=== PATIENT | female | born 1965 | race Caucasian/White ===

== ENCOUNTER 2018-09-03 21:10 | Inpatient (IN) | payer MEDICAID, OTHER ==
[~2018-09-03] VITALS: Ht 152.4 cm; Wt 60.8 kg
--- NOTE | 2018-09-03 22:15 | ERD ---
ER Documentation Chief Complaint Chief Complaint multiple c/o HPI The patient is a 52-year-old female, presenting to the ER with multiple complaints. She complains of right eye discomfort yesterday that began around 8 AM. She complains about left-sided headache, left facial numbness, left hand numbness around 630 this morning, complains of left leg numbness began about 6 PM this evening. She had similar symptoms previously about 3 weeks ago that lasted for approximately a day and went away by itself. She denies fever, chill s, blurred vision, neck pain, chest pain, dyspnea, abdominal pain, vomiting, dysuria, diarrhea. She does not smoke, drinks socially, has a lot of stress in her life recently Past medical history: Hypertension but does not take med, anxiety Past surgical history: None ROS All systems reviewed and are negative except as per history of present illness. Physical Exam Vitals Vital Signs Date Temp Pulse Resp B/P (MAP) Pulse Ox O2 O2 Flow FiO2 Time Delivery Rate 09/04/18 71 20 120/74 99 Room Air 00:06 (89) 09/03/18 77 20 172/93 98 Room Air 22:15 (119) 09/03/18 98.4 84 18 202/104 100 21:15 (136) Physical Exam Const: No acute distress. Head: Atraumatic. Eyes: Normal Conjunctiva. ENT: Normal External Ears, Nose and Mouth. Neck: Full range of motion. No meningismus. Resp: Clear to auscultation bilaterally. Cardio: Regular rate and rhythm. Abd: Soft, non distended, normal bowel sounds, non tender. Skin: No petechiae or rashes. Back: No midline or flank tenderness. Ext: No cyanosis, or edema. Neur: Awake and alert. No focal deficit Psych: Anxious Result Diagram: 09/03/18 2300 09/03/18 230 Results 24 hrs Laboratory Tests Test 09/03/18 23:00 White Blood Count 7.4 10^3/ul Red Blood Count 4.63 10^6/ul Hemoglobin 13.9 g/dl Hematocrit 41.6 % Mean Corpuscular Volume 89.8 fl Mean Corpuscular Hemoglobin 30.0 pg Mean Corpuscular Hemoglobin Concent 33.4 g/dl Red Cell Distribution Width 12.0 % Platelet Count 301 10^3/UL Mean Platelet Volume 9.6 fl Immature Granulocytes % 0.300 % Neutrophils % 52.4 % Lymphocytes % 37.6 % Monocytes % 7.7 % Eosinophils % 1.6 % Basophils % 0.4 % Nucleated Red Blood Cells % 0.0 /100WBC Immature Granulocytes # 0.020 10^3/ul Neutrophils # 3.9 10^3/ul Lymphocytes # 2.8 10^3/ul Monocytes # 0.6 10^3/ul Eosinophils # 0.1 10^3/ul Basophils # 0.0 10^3/ul Nucleated Red Blood Cells # 0.0 10^3/ul Prothrombin Time 11.8 Sec Prothrombin Time Ratio 0.9 INR International Normalized Ratio 0.86 Activated Partial Thromboplast Time 29.3 Sec Sodium Level 141 mmol/L Potassium Level 3.7 mmol/L Chloride Level 106 mmol/L Carbon Dioxide Level 26 mmol/L Anion Gap 9 Blood Urea Nitrogen 17 mg/dl Creatinine 0.69 mg/dl Est Glomerular Filtrat Rate mL/min > 60 mL/min Glucose Level 99 mg/dl Calcium Level 10.4 mg/dl Current Medications Medications Dose Sig/Warren Start Time Status Last (Trade) Ordered Route PRN Stop Time Admin Dose Reason Admin Alprazolam 0.25 mg ONCE ONCE 09/03/18 DC 09/03/18 (Xanax) PO 23:00 23:14 09/03/18 23:01 1 tab ONCE ONCE 09/04/18 DC 09/04/18 Acetaminophen PO 01:00 00:54 / 09/04/18 01:01 Hydrocodone Bitart ([place] (5/325)) Ondansetron 4 mg ONCE STAT 09/04/18 DC 09/04/18 HCl (Zofran ODT 00:45 00:54 Odt) 09/04/18 00:46 Procedures/MDM EKG: Read by emergency physician Rate/Rhythm: Normal Sinus Rhythm 69 beats/min QRS, ST, T-waves: No ST elevation, no T inversion Impression: Normal EKG [place] [id number] Radiology Main Line: [phone] DIAGNOSTIC IMAGING REPORT Patient: CODI SERRANO : 1965 Age: 52 Sex: F MR #: [id number] DOS: 09/03/18 1527 Ordering MD: JORGE GROSSMAN MD Location: E/R Room/Bed: PROCEDURE: CT Brain without contrast. CLINICAL INDICATION: Headache. TECHNIQUE: A CT of the brain was performed on a multi-slice CT scanner utilizing axial imaging from the skull base through the vertex without IV contrast. Multiplanar reformatted images were made. Images were reviewed on a PACS workstation. One or more the following dose reduction techniques were utilized: Automated exposure control, adjustment of mA/ or kV according to patient's size, or use of iterative reconstruction technique. DICOM images are available for review. The CTDIvol is 39.64 mGy and the DLP is 634.23 mGycm. COMPARISON: None FINDINGS: No mass effect or midline shift. Normal ventricles for age. No acute intra-axial or extra-axial hemorrhage. No subdural collection. Clemons - white matter differentiation is maintained. Visualized paranasal sinuses are clear. Mastoid air cells are clear. IMPRESSION: Negative noncontrast CT brain RPTAT: HLRS Physician Elba Date Time Electronically viewed and signed by Physician Elba on 09/04/2018 00:49 RS/ CC: JORGE GROSSMAN MD [id number] MEDICAL MAKING DECISION: The patient is a 52-year-old female, presenting with acute left-sided numbness of unclear etiology, acute hypertensive urgency. She was treated with Xanax 0.25 mg p.o. for acute anxiety, [place] 5 mg p.o. for her headache and Zofran ODT for her nausea with good response, blood pressure improved The differential diagnoses considered include but are not limited to impending CVA, TIA, subarachnoid hemorrhage, occult trauma, CVA, meningitis, encephalitis, hypertension, tension, migraine, cluster, narcotic withdrawal, cervical spine disease. Departure Diagnosis: Primary Impression: Left sided numbness Condition: Stable Comments I discussed the findings with the patient. I discussed the patient with Harvey at 1:20 AM, who was made aware of the lab, the treatment, the patient condition. The patient is admitted to Tel observation Disclaimer: Inadvertent spelling and grammatical errors are likely due to EHR/dictation software use and do not reflect on the overall quality of patient care. Also, please note that the electronic time recorded on this note does not necessarily reflect the actual time of the patient encounter. JORGE GROSSMAN MD September 03, 2018 22:15
[2018-09-03] MEDS ORDERED: ALPRAZOLAM 0.25 MG TAB PO ONE (23:00)
[2018-09-04] VITALS (10 sets, daily range): BP systolic 113–129; BP diastolic 59–70; PULSE 54–74; RESP 18; Ht 152.4 cm; Wt 60.8 kg
[2018-09-04] MEDS ORDERED: ONDANSETRON (ODT) 4 MG TAB ODT STA (00:45)
[2018-09-04] MEDS ORDERED: HYDROCODONE/APAP (5/325) TAB PO ONE (01:00)
--- NOTE | 2018-09-04 01:29 | HP ---
Date/Time of Note Date/Time of Note DATE: 09/04/18 TIME: : Assessment/Plan VTE Prophylaxis SCD applied (from Nsg): Yes Pharmacological prophylaxis: NA/contraindicated Pharm contraindication: low risk/ambulating Lines/Catheters IV Catheter Type (from Nrsg): Saline Lock Assessment/Plan Hospital Course This is a 52-year-old female being admitted to the telemetry floor for observation for: #1 headaches with left-sided numbness: Differential includes cva/tia, multiple sclerosis, complex migraine, uncontrolled hypertension, anxiety. Patient did present to the emergency department with systolic blood pressures in the 200s which subsequently improved after receiving Ralph as well as Xanax. Patient did report a headache again later and was given Ralph which did provide her some relief. Given her left-sided numbness as well as her lumbar pain. We will proceed with an MRI of the brain with and without contrast as well as an MRI of the lumbar spine. We will provide the patient Toradol for headaches. CT of the brain was negative for any acute abnormalities. Neurochecks every 4 hours. Will consult neurology . check a1c, lipid panel, tsh, carotid doppler. echo with bubble study. #2 elevated blood pressure: Patient did present with blood pressures in the 200s however these did subsequently improve after receiving Ralph and Xanax. I am inclined to think that this likely could be anxiety related. Nonetheless we will continue to monitor blood pressures. And institute any blood pressure medication as indicated. #3 lower back pain: Patient does have tenderness palpation at the lumbar spine. She has positive straight leg test bilaterally. Saddle anesthesia, no urinary incontinence. We will proceed with MRI of the lumbar spine. #4 DVT GI prophylaxis: SCDs, no GI prophylaxis indicated Further treatment strategy will be implemented as per the clinical course. Result Diagram: 09/03/18 2300 09/03/18 2300 Results 24hrs Laboratory Tests Test 09/03/18 23:00 White Blood Count 7.4 Red Blood Count 4.63 Hemoglobin 13.9 Hematocrit 41.6 Mean Corpuscular Volume 89.8 Mean Corpuscular Hemoglobin 30.0 Mean Corpuscular Hemoglobin Concent 33.4 Red Cell Distribution Width 12.0 Platelet Count 301 Mean Platelet Volume 9.6 Immature Granulocytes % 0.300 Neutrophils % 52.4 Lymphocytes % 37.6 Monocytes % 7.7 Eosinophils % 1.6 Basophils % 0.4 Nucleated Red Blood Cells % 0.0 Immature Granulocytes # 0.020 Neutrophils # 3.9 Lymphocytes # 2.8 Monocytes # 0.6 Eosinophils # 0.1 Basophils # 0.0 Nucleated Red Blood Cells # 0.0 Prothrombin Time 11.8 L Prothrombin Time Ratio 0.9 INR International Normalized Ratio 0.86 Activated Partial Thromboplast Time 29.3 Sodium Level 141 Potassium Level 3.7 Chloride Level 106 Carbon Dioxide Level 26 Anion Gap 9 Blood Urea Nitrogen 17 Creatinine 0.69 Est Glomerular Filtrat Rate mL/min > 60 Glucose Level 99 Calcium Level 10.4 H HPI/ROS Admit Date/Time Admit Date/Time Hx of Present Illness Chief complaint: Headache, left-sided weakness Is a 52-year-old female with a past medical history of anxiety who presented with symptoms of headache. Patient reported that she started experiencing right sided eye discomfort at approximately 8 AM yesterday. She then reported that it moved over to the left side and she started experiencing left sided headache and pressure surrounding the left eye. She states that then developed into the left facial numbness along with left upper and lower extremity numbness. She did not have any difficulty with her gait. She did report having similar symptoms approximately 3 weeks ago and they resolved on their own. She has been told she has a history of high blood pressure but she has not been checking her blood pressure at home. She also reports that she has had lower back pain for 1 week. She reports that it hurt when she sits as well as after she walks. She denies any urinary incontinence or saddle anesthesia. She does though deny photophobia Family is present with her at the bedside. And they also do report that she has a history of anxiety. Does not report any recent acute events. Allergies: NKDA Medications: See JUN ROS Const: As per HPI Eyes : No pain discharge or redness or change in visual acuity ENT: No pain, sore throat, congestion, congestion, dysphagia or discharge Respiratory: No shortness of breath, cough, sputum, wheezing, or pleuritic pain Cardiovascular: No chest pain, palpitation, PND, or edema GI : no change in appetite, abdominal pain, nausea, vomiting, diarrhea, constipation, or change in the color his stool Genitourinary: No dysuria, hematuria, flank pain , discharge or CVA tenderness Musculoskeletal: As per HPI Skin: No rash, bruising or hives Neuro: As per HPI Endocrine: No polyuria, polydipsia, temperature intolerance Psych: No hallucination, depression, anxiety or suicidal ideation PMH/Family/Social Past Medical History Hypertension, anxiety Coded Allergies: No Known Allergy (Unverified , 09/04/18) Past Surgical History Past Surgical Hx: no surgical history Family History Significant Family History: no pertinent family hx Social History Alcohol Use: none Smoking Status: Never smoker Drug Use: none Exam/Review of Systems Vital Signs Vitals Vital Signs Date Temp Pulse Resp B/P (MAP) Pulse Ox O2 O2 Flow FiO2 Time Delivery Rate 09/04/18 71 20 120/74 99 Room Air 00:06 (89) 09/03/18 98.4 21:15 Exam Exam General: Patient is a pleasant female currently lying in bed in no acute distress HEENT: Atraumatic, normocephalic. The pupils are equal, round and reactive. Ex traocular motor are intact Neck: Supple with full range of motion. No rigidity or meningismus Chest: Nontender Lungs: Clear to auscultation bilaterally no crackles rales or wheezing Heart: Normal S1-S2, Regular rhythm and rate. Abdomen: Soft , nontender, nondistended , bowel sounds are present. No guarding no rebound tenderness , No masses or organomegaly. No costovertebral temporal angle mass Extremities: Normal to inspection, no edema no cyanosis Neurologic: Normal mental status, speech normal, cranial nerves II through XII are intact, motor and sensory are intact, positive straight leg test bilaterally Musculoskeletal: Tenderness palpation at the lumbar spine Skin: Left cheek birthmark Additional Comments PROCEDURE: CT Brain without contrast. CLINICAL INDICATION: Headache. TECHNIQUE: A CT of the brain was performed on a multi-slice CT scanner utilizing axial imaging from the skull base through the vertex without IV contrast. Multiplanar reformatted images were made. Images were reviewed on a PACS workstation. One or more the following dose reduction techniques were utilized: Automated exposure control, adjustment of mA/ or kV according to selena ent's size, or use of iterative reconstruction technique. DICOM images are available for review. The CTDIvol is 39.64 mGy and the DLP is 634.23 mGycm. COMPARISON: None FINDINGS: No mass effect or midline shift. Normal ventricles for age. No acute intra-axial or extra-axial hemorrhage. No subdural collection. Clemons - white matter differentiation is maintained. Visualized paranasal sinuses are clear. Mastoid air cells are clear. IMPRESSION: Negative noncontrast CT brain RPTAT: HLRS Physician Elba Date Time Electronically viewed and signed by Lin Smith Physician on 09/04/2018 00:49 RS/ CC: JORGE GROSSMAN MD [id number] EKG: Rate/Rhythm: Normal Sinus Rhythm 69 beats/min QRS, ST, T-waves: No ST elevation, no T inversion Impression: Normal EKG KWABENA VILLARREAL September 04, 2018 01:29
[2018-09-04] MEDS ORDERED: NITROGLYCERIN (SL) 0.4 MG TAB SL PRN (04:00)
[2018-09-04] MEDS ORDERED: HYDROCODONE/APAP (5/325) TAB PO PRN (04:00)
[2018-09-04] MEDS ORDERED: DOCUSATE SODIUM 100 MG CAP PO PRN (04:00)
[2018-09-04] MEDS ORDERED: ACETAMINOPHEN 325 MG TAB PO PRN (04:00)
[2018-09-04] MEDS ORDERED: NACL 0.9% 3 ML SYG IV SCH (04:00)
[2018-09-04] MEDS ORDERED: hydrALAzine 20 MG INJ IV PRN (04:00)
[2018-09-04] MEDS ORDERED: ONDANSETRON 4 MG INJ IV PRN (04:00)
[2018-09-04] MEDS ORDERED: BISACODYL (EC) 5 MG TAB PO PRN (04:00)
[2018-09-04] MEDS: KETOROLAC 15 MG INJ IV SCH ×4 (05:53→23:00)
--- NOTE | 2018-09-04 10:01 | QN ---
Documentation Comment 52-yo F w/previous hx of htn-off tx,came in for sudden onset of sevre headache followed by left arm numbness... CT brain unremarkable. Patient symptoms completely resolved. Blood pressure has been stable and will hold off to any antihypertensive at this point. Pending neurology evaluation. She has been also having low back pain for a week duration. We will follow-up on MRI studies that has been ordered. PT follow- up. Patient was seen in collaboration with Dr. Regalado. YURI VINSON NP September 04, 2018 10:01
--- NOTE | 2018-09-04 11:14 | CONS ---
Assessment/Plan Assessment/Plan Hospital Course 52 F c reported Hx of HTN, though admittedly noncompliant w/ medications...who presents for evaluation of transient left sided numbness in the context of headache. Admission BP 202/104.. The clinical picture is most ominously concerning for TIA/minor stroke. New onset and complex migraine is unlikely.. Hypertensive urgency is a Dx of exclusion.. Head CT is unrevealing. CUS is negative P: Await MRI brain for exclude acute ischemia Asa/lipitor for now pending the above Await echo read PT/OT/ST not presently indicated.. Pain control and other management per primary Will follow clinically Consultation Date/Type/Reason Admit Date/Time Type of Consult Neurology Reason for Consultation transient headache and left sided numbness Requesting Provider: KWABENA VILLARREAL Date/Time of Note DATE: 09/04/18 TIME: 11:05 Hx of Present Illness Chief complaint: Headache, left-sided weakness She is a 52-year-old female with a past medical history of anxiety who presented with symptoms of headache. Patient reported that she started experiencing right sided eye discomfort at approximately 8 AM yesterday. She then reported that it moved over to the left side and she started experiencing left sided headache and pressure surrounding the left eye. She states that then developed into the left facial numbness along with left upper and lower extremity numbness. She did not have any difficulty with her gait. She did report having similar symptoms approximately 3 weeks ago and they resolved on their own. She has been told she has a history of high blood pressure but she has not been checking her blood pressure at home. She also reports that she has had lower back pain for 1 week. She reports that it hurt when she sits as well as after she walks. She denies any urinary incontinence or saddle anesthesia. She does though deny photophobia Family is present with her at the bedside. And they also do report that she has a history of anxiety. Does not report any recent acute events. She has not seen a doctor in a couple of years...tough reportedly diagnosed w/ hypertension 8 years ago. Allergies: NKDA 12 PT ros ow neg Exam/Review of Systems Exam Vitals Vital Signs Date Temp Pulse Resp B/P (MAP) Pulse Ox O2 O2 Flow FiO2 Time Delivery Rate 09/04/18 97.6 74 18 118/68 98 Room Air 11:01 (85) Exam PE: Gen Appearance: No Apparent Distress HEENT: Normocephalic Cardiovascular: Regular rate Lungs: Clear bilaterally Abdomen: Soft Extremities: Dry NE: The patient was alert and oriented. Language was normal. Fund of knowledge was normal. Pupils were equal and reactive to light. There was no afferent pupillary defect. Visual varma were normal. Funduscopic examination was limited. Extra-ocular movements were full. Ptosis was absent. There was no nystagmus. Facial sensation was normal. Face was symmetric with normal strength. Hearing was intact. Palate movements were normal. Neck strength was normal. There was normal tongue bulk and speed of movement. Tone was normal. Muscle bulk was normal. I did not see fasciculations. Arms and legs were strong. Vibration sensation was normal. Temperature and pinprick sensation was normal. Rapid alternating movements were normal. There was no dysmetria. There was no intention tremor. Gait was deferred due to bedrest. Arm and leg reflexes were 2+ and symmetric. Boyle's sign was absent. Plantar r esponses were flexor. Results Result Diagram: 09/04/18 0648 09/04/18 0648 Results 24hrs Laboratory Tests Test 09/03/18 23:00 09/04/18 06:48 White Blood Count 7.4 5.2 # Red Blood Count 4.63 4.34 Hemoglobin 13.9 13.1 Hematocrit 41.6 39.1 Mean Corpuscular Volume 89.8 90.1 Mean Corpuscular Hemoglobin 30.0 30.2 Mean Corpuscular Hemoglobin Concent 33.4 33.5 Red Cell Distribution Width 12.0 12.0 Platelet Count 301 273 Mean Platelet Volume 9.6 9.4 Immature Granulocytes % 0.300 0.200 Neutrophils % 52.4 41.1 Lymphocytes % 37.6 45.4 Monocytes % 7.7 10.0 Eosinophils % 1.6 2.7 Basophils % 0.4 0.6 Nucleated Red Blood Cells % 0.0 0.0 Immature Granulocytes # 0.020 0.010 Neutrophils # 3.9 2.1 Lymphocytes # 2.8 2.4 Monocytes # 0.6 0.5 Eosinophils # 0.1 0.1 Basophils # 0.0 0.0 Nucleated Red Blood Cells # 0.0 0.0 Prothrombin Time 11.8 L Prothrombin Time Ratio 0.9 INR International Normalized Ratio 0.86 Activated Partial Thromboplast Time 29.3 Sodium Level 141 144 Potassium Level 3.7 4.1 Chloride Level 106 109 Carbon Dioxide Level 26 27 Anion Gap 9 8 Blood Urea Nitrogen 17 15 Creatinine 0.69 0.71 Est Glomerular Filtrat Rate mL/min > 60 > 60 Glucose Level 99 91 Calcium Level 10.4 H 9.5 Hemoglobin A1c 5.2 Magnesium Level 2.1 Total Bilirubin 0.6 Direct Bilirubin 0.00 Indirect Bilirubin 0.6 Aspartate Amino Transf (AST/SGOT) 20 Alanine Aminotransferase (ALT/SGPT) 15 Alkaline Phosphatase 84 Total Protein 7.3 Albumin 4.0 Globulin 3.30 H Albumin/Globulin Ratio 1.21 Triglycerides Level 64 Cholesterol Level 170 LDL Cholesterol, Calculated 103 HDL Cholesterol 54 Cholesterol/HDL Ratio 3.1 Thyroid Stimulating Hormone (TSH) 1.930 Medications Medication Current Medications IV Flush (NS 3 ml) 3 ml PER PROTOCOL IV ; Start 09/04/18 at 04:00 Ondansetron HCl (Zofran Inj) 4 mg Q6H PRN IV NAUSEA/VOMITING; Start 09/04/18 at 04:00 Nitroglycerin (Nitroglycerin (Sl Tab) 0.4 Mg) 1 tab Q5M PRN SL .CHEST PAIN; Start 09/04/18 at 04:00 Acetaminophen (Tylenol Tab) 650 mg Q6H PRN PO .PAIN 1-3 OR TEMP; Start 09/04/18 at 04:00 Docusate Sodium (Colace) 100 mg Q12H PRN PO .CONSTIPATION; Start 09/04/18 at 04:00 Bisacodyl (Dulcolax) 5 mg DAILY PRN PO .CONSTIPATION; Start 09/04/18 at 04:00 Hydralazine HCl (Apresoline) 10 mg Q4H PRN IV ELEVATED BLOOD PRESSURE; Start 09/04/18 at 04:00 Acetaminophen/ Hydrocodone Bitart ([place] (5/325)) 1 tab Q4H PRN PO MODERATE PAIN LEVEL 4-6 Last administered on 09/04/18at 03:48; Admin Dose 1 TAB; Start 09/04/18 at 04:00 Ketorolac Tromethamine (Toradol) 15 mg Q6H IV Last administered on 09/04/18at 05:53; Admin Dose 15 MG; Start 09/04/18 at 05:00; Stop 09/05/18 at 05:00 Past Medical History reviewed Medications Current Medications IV Flush (NS 3 ml) 3 ml PER PROTOCOL IV ; Start 09/04/18 at 04:00 Ondansetron HCl (Zofran Inj) 4 mg Q6H PRN IV NAUSEA/VOMITING; Start 09/04/18 at 04:00 Nitroglycerin (Nitroglycerin (Sl Tab) 0.4 Mg) 1 tab Q5M PRN SL .CHEST PAIN; Start 09/04/18 at 04:00 Acetaminophen (Tylenol Tab) 650 mg Q6H PRN PO .PAIN 1-3 OR TEMP; Start 09/04/18 at 04:00 Docusate Sodium (Colace) 100 mg Q12H PRN PO .CONSTIPATION; Start 09/04/18 at 04:00 Bisacodyl (Dulcolax) 5 mg DAILY PRN PO .CONSTIPATION; Start 09/04/18 at 04:00 Hydralazine HCl (Apresoline) 10 mg Q4H PRN IV ELEVATED BLOOD PRESSURE; Start 09/04/18 at 04:00 Acetaminophen/ Hydrocodone Bitart ([place] (5/325)) 1 tab Q4H PRN PO MODERATE PAIN LEVEL 4-6 Last administered on 09/04/18at 03:48; Admin Dose 1 TAB; Start 09/04/18 at 04:00 Ketorolac Tromethamine (Toradol) 15 mg Q6H IV Last administered on 09/04/18at 05:53; Admin Dose 15 MG; Start 09/04/18 at 05:00; Stop 09/05/18 at 05:00 Allergies: Coded Allergies: No Known Allergy (Unverified , 09/04/18) Past Surgical History Past Surgical Hx: no surgical history Social History Alcohol Use: none Smoking Status: Never smoker Drug Use: none TAVIA NATH September 04, 2018 11:14
[2018-09-04] MEDS ORDERED: ASPIRIN (EC) 325 MG TAB PO ONE (11:30)
--- NOTE | 2018-09-04 17:38 | RADRPT ---
Echocardiogram Report Patient Name: CODI SERRANOPatient ID: [id number] : 1965 (53y )Study Date: 09/04/2018 8:02:03 AM Gender: FAccession #: [id number] Tech: Joni Liana [facility] Location: [address] Ref.Physician: KWABENA VILLARREAL Height(Cm): BSA: Weight(Kg): Quality: AdequateOrder Physician: KWABENA VILLARREAL Account #: Procedures: Echocardiographic Report: Transthoracic echocardiogram with complete 2D, M-Mode, and doppler examination. Indications: Left sided numbness w/ bubble study. Measurements: 2D/M Mode Doppler Measurement Value Normal Range Measurement Value Normal Range LVIDd 2D 4.3 [ 3.8 - 5.2 ] cm AV Peak Leroy 1.5 [ 100.0 - 170.0 ] cm/sec LVIDs 2D 2.6 [ 2.2 - 3.5 ] cm AV Peak PG 8.0 [ 2.0 - 9.0 ] mmHg LVPWd 2D 0.9 [ 0.6 - 0.9 ] cm LVOT Peak Leroy 0.9 [ 70.0 - 110.0 ] cm/sec IVSd 2D 0.9 [ 0.6 - 0.9 ] cm LVOT Peak PG 3.0 [ 2.0 - 6.0 ] mmHg AoR Diam 2D 2.0 [ 2.3 - 3.1 ] cm MV E Peak Leroy 0.9 [ 60.0 - 130.0 ] cm/sec EDV 2D 80.8 [ 46.0 - 106.0 ] ml MV A Peak Leroy 0.6 [ 100.0 - 120.0 ] cm/sec ESV 2D 24.6 [ 14.0 - 42.0 ] ml MV E/A 1.5 [ 0.8 - 1.5 ] ratio EF 2D 69.6 [ 54.0 - 74.0 ] percent MV Decel Time 165 [ 104 - 258 ] msec LA Dimen 2D 3.0 [ 2.7 - 3.8 ] cm Lat E` Leroy 0.1 [ 10.0 - 15.0 ] cm/sec Lateral E/E` 7.0 [ 1.0 - 2.0 ] ratio MV E/A 1.5 [ 0.8 - 1.5 ] ratio TR Peak Leroy 2.9 [ 100.0 - 280.0 ] cm/sec TR Peak PG 33.0 mmHg RVSP 36.0 [ 10.0 - 36.0 ] mmHg Findings: Left Ventricle: Normal left ventricular systolic function. Normal left ventricular cavity size. Normal left ventricular wall thickness. Ejection fraction is visually estimated at 55 %. Tissue Doppler/Mitral Doppler indices are within normal limits. Right Ventricle: Normal right ventricular size. Normal right ventricular systolic function. Left Atrium: The left atrium is normal in size. Right Atrium: The right atrium is normal in size. Atrial Septum: Bubble study was performed with and with out valsalva indicating no evidence of intra atrial shunt. Mitral Valve: Mild mitral leaflet calcification. Mild mitral annular calcification. Trace mitral regurgitation. Aortic Valve: No hemodynamically significant aortic stenosis by doppler. Aortic cusps appear mildly calcified. Tricuspid Valve: Normal appearance of the tricuspid valve. Estimated peak PA systolic pressure 36 mmHg. There is mild tricuspid regurgitation. Pericardium: Normal pericardium with no significant pericardial effusion. Aorta: Normal aortic root. IVC: Normal size and normal respiratory collapse consistent with normal right atrial pressure. Conclusions: Normal left ventricular systolic function. Normal left ventricular cavity size. Normal left ventricular wall thickness. Ejection fraction is visually estimated at 55 %. Tissue Doppler/Mitral Doppler indices are within normal limits. Electronically Signed By: Rex Pritchard 2018-09-04 17:37:48 PDT
[2018-09-04] MEDS ORDERED: ATORVASTATIN 40 MG TAB PO SCH (21:00)
[2018-09-05] VITALS (8 sets, daily range): BP systolic 103–123; BP diastolic 54–61; PULSE 52–76; RESP 16–18
[2018-09-05] MEDS: KETOROLAC 15 MG INJ IV SCH (05:00)
[2018-09-05] MEDS ORDERED: ASPIRIN (EC) 81 MG TAB PO SCH (09:00)
--- NOTE | 2018-09-05 13:03 | PDOCDIS ---
Discharge Instructions CONDITION [id number] Patient Condition: [id number] Stable HOME CARE INSTRUCTIONS: [id number] Diet Instructions: [id number] Regular FOLLOW UP/APPOINTMENTS Follow-up Plan Follow-up with primary care physician in 1 week YURI VINSON NP September 05, 2018 13:03
--- NOTE | 2018-09-05 13:10 | DS ---
Date/Time of Note Date/Time of Note DATE: 09/05/18 TIME: 13:07 Discharge Summary Admission/Discharge Info Admit Date/Time September 04, 2018 at 09:17 Discharge Date/Time Discharge Diagnosis Headache/numbness likely related to hypertension/anxiety attack. Resolved. Stroke ruled out. Lumbar level degenerative disease. Patient Condition: Stable Consults Procedures 09/04/2018: MRI brain: IMPRESSION: 1. Partially empty sella. Right optic nerve sheath distension. Flattening of the bilateral posterior sclera . Overall findings are suggestive of pseudotumor cerebri in the proper clinical settings. 2. Mild diffuse volume loss. 3. No abnormal leptomeningeal, intraparenchymal or dural enhancement. 09/04/2018 MRI lumbar spine: IMPRESSION: 1. Mild degenerative disc disease at L5-S1 with a broad 2 - 3 mm disc protrusion more prominent centrally and disc osteophytes with mild bilateral neural foraminal narrowing. 2. Mild to moderate facet arthropathy at L4-L5 and L5-S1. 3. Small 2 mm right foraminal disc protrusions at L3-L4 and L4-L5 with mild right neural foraminal narrowing at L4-L5. Minimal degenerative disc disease at L4-L5 more prominent on the right with type 1 endplate changes. 4. No significant central canal narrowing throughout the lumbar spine. .Maru Rosario MD, Date Time Electronically viewed and signed by .Maru Rosario MD, MD on 09/04/2018 17:49 .T/ Hospital Course 52-yo F w/previous hx of htn-off tx, lumbar level degenerative disc disease, came in for sudden onset of sevre headache followed by left arm numbness... Known to have elevated blood pressure 202/104 on arrival. Patient was ruled out for CVA. She was being followed by neurologist. Most likely etiology of headache is hypertension/anxiety attacks. Patient's blood pressure stabilized without any addition of antihypertensives. She did not have any further headache or numbness. She did well with the physical therapy evaluation. At this time, patient does not need any further inpatient work-up and can be discharged with outpatient follow-up. Approximately 60 m spent on coordinating the discharge on this patient. Patient was seen in collaboration with Dr. Regalado. Follow-up Plan Follow-up with primary care physician in 1 week Primary Care Provider Care Physician No Primary Pending Labs Laboratory Tests Test 09/05/18 05:48 White Blood Count 4.9 10^3/ul (4.8-10.8) Red Blood Count 4.21 10^6/ul (4.20-5.40) Hemoglobin 12.7 g/dl (12.0-16.0) Hematocrit 38.3 % (37.0-47.0) Mean Corpuscular Volume 91.0 fl (82.0-101.0) Mean Corpuscular Hemoglobin 30.2 pg (29.0-33.0) Mean Corpuscular Hemoglobin Concent 33.2 g/dl (32.0-37.0) Red Cell Distribution Width 11.9 % (11.5-14.5) Platelet Count 266 10^3/UL (140-415) Mean Platelet Volume 9.4 fl (7.4-10.4) Immature Granulocytes % 0.200 % (0.001-0.429) Neutrophils % 45.0 % (39.0-77.0) Lymphocytes % 42.5 % (15.0-51.0) Monocytes % 8.2 % (0.0-11.0) Eosinophils % 3.7 % (0.0-7.0) Basophils % 0.4 % (0.0-2.0) Nucleated Red Blood Cells % 0.0 /100WBC (0.0-0.0) Immature Granulocytes # 0.010 10^3/ul (0.0-0.031) Neutrophils # 2.2 10^3/ul (1.6-7.5) Lymphocytes # 2.1 10^3/ul (0.8-2.9) Monocytes # 0.4 10^3/ul (0.3-0.9) Eosinophils # 0.2 10^3/ul (0.0-0.5) Basophils # 0.0 10^3/ul (0.0-0.1) Nucleated Red Blood Cells # 0.0 10^3/ul (0.0-0.0) Sodium Level 140 mmol/L (135-144) Potassium Level 4.1 mmol/L (3.5-5.1) Chloride Level 108 mmol/L (97-110) Carbon Dioxide Level 26 mmol/L (21-31) Anion Gap 6 (5-13) Blood Urea Nitrogen 27 mg/dl (7-20) Creatinine 0.77 mg/dl (0.44-1.00) Est Glomerular Filtrat Rate mL/min > 60 mL/min (>60) Glucose Level 93 mg/dl (70-220) Calcium Level 9.2 mg/dl (8.4-10.2) Total Bilirubin 0.6 mg/dl (0.2-1.3) Direct Bilirubin 0.00 mg/dl (0.00-0.20) Indirect Bilirubin 0.6 mg/dl (0-1.1) Aspartate Amino Transf (AST/SGOT) 21 IU/L (15-46) Alanine Aminotransferase (ALT/SGPT) 18 IU/L (13-69) Alkaline Phosphatase 69 IU/L (42-121) Total Protein 6.6 g/dl (6.1-8.1) Albumin 3.8 g/dl (3.3-4.9) Globulin 2.80 g/dl (1.3-3.2) Albumin/Globulin Ratio 1.35 YURI VINSON V. MEDICAL DOCTOR September 05, 2018 13:10
== END 2018-09-05 14:54 | disposition home or self-care (01) | DRG 103 ==
LOC: E/R 21:10 → TEL 09-04 01:23 → OBSVTOIN 09-04 09:17
PROVIDERS: ADMIT Family Medicine; ATTEND Family Medicine
DX: R51 Headache (principal); R20.0 Anesthesia of skin; I10 Essential (primary) hypertension; F41.9 Anxiety disorder, unspecified; M51.36 Other intervertebral disc degeneration, lumbar region; H57.11 Ocular pain, right eye
CPT/HCPCS: 36415; 70450; 70553; 72148; 80048; 80053; 80061; 82306; 83036; 83735; 84443; 85025; 85610; 85730; 93306; 93880; 97161; G0378; J1885